=== PATIENT | male | born 1960 | race Caucasian/White ===

== ENCOUNTER 2016-08-20 02:00 | Emergency (ER) | payer MEDICARE, OTHER ==
[2016-08-20] MEDS ORDERED: ALBUTEROL SULFATE/IPRATROPIUM 3 ML NEBU IH ONE ×2 (02:44→02:53)
[2016-08-20] MEDS ORDERED: BENZONATATE 100 MG CAPSULE PO ONE ×2 (02:44→02:54)
[2016-08-20] MEDS ORDERED: METHYLPREDNISOLONE SOD SUCC/PF 40 MG/ML VIAL IV ONE (02:44)
--- NOTE | 2016-08-20 02:49 | ERNOTE ---
Dyspnea - Date Date of Service: 08/20/16 - General Presenting Symptoms: shortness of breath, wheezing Time Seen by Provider: 08/20/16 02:40 Source: patient, family Exam Limitations: no limitations - Immun/Allergies/Home Medications Immunizations: IMMUNIZATION HX Immunizations Up to Date Yes: 2013 History of Influenza Vaccine No Hx Pneumococcal Vaccination No Allergies/Adverse Reactions: Allergies No Known Allergies Allergy (Verified 09/10/15 14:50) Home Medications: HOME MEDICATIONS Albuterol Sulfate [Albuterol Sulfate 0.63 MG/3ML] 0.63 mg IH Q4H PRN #25 vial.neb 07/16/15 [Last Taken Unknown] Albuterol Sulfate/Ipratropium [Duoneb 2.5-0.5MG/3ML Soln] 3 ml IH QID #150 vial 09/10/15 [Last Taken Unknown] Benzonatate [Tessalon] 200 mg PO Q8H PRN #30 cap 08/20/16 [Last Taken Unknown] predniSONE [Prednisone] 2 tab PO DAILY #14 tab 08/20/16 [Last Taken Unknown] - History of Present Illness Date (Duration): 08/20/16 Time (Timing): 01:00 Severity: severe Treatment PULP BLEACHER: none Initiating event: Reports: upper resp illness Frequency of episodes: Reports: occassional episodes Modifying Factors (Worsens): Reports: coughing Associated Symptoms-Dyspnea: Reports: cough, wheezing Review of Systems - Review of Systems Constitutional: Present: no symptoms reported EYE: Present: no symptoms reported ENT: Present: nasal drainage Respiratory: Present: shortness of breath, cough, wheezing Cardiology: Present: no symptoms reported Gastrointestinal/Abdominal: Present: no symptoms reported Musculoskeletal: Present: no symptoms reported Skin: Present: no symptoms reported Neurological: Present: no symptoms reported Endocrine: Present: no symptoms reported Hematologic/Lymphatic: Present: no symptoms reported Psych: Present: no symptoms reported All Other Systems: All systems neg except as marked - Patient's Past Medical History Patient History - Medical: No pertinent hx Patient History - Cardiac/Respiratory: Asthma Patient History - Cancer: No Hx of Cancer Patient History - Surgical Procedures: Other Patient History - Other: None - Social History Living Situations: significant other Abuse History: No History of abuse Psych History: No pertinent hx Smoking Status: Current every day smoker Alcohol Use: none Drug Use: none - Immunizations Immunizations Up to Date: Yes - 2013 Hx Pneumococcal Vaccination: No History of Influenza Vaccine: No Physical Exam - Physical Exam General Appearance: Present: wd/wn, alert, no apparent distress Eye Exam: Normal inspection: bilateral, PERRL: bilateral, EOMI: bilateral Ears, Nose, Throat: Present: normal ENT inspection, hearing grossly normal Neck: Present: normal inspection, nontender Respiratory: Present: accessory muscle use, decreased breath sounds, expiration (prolonged), wheezing Cardiovascular/Chest: Present: regular rate, rhythm, no murmur Gastrointestinal/Abdominal: Present: normal bowel sounds, nontender, nondistended, soft, no organomegaly Neurological Exam: Present: alert, oriented, normal mood/affect Skin Exam: Present: normal color, warm/dry ED Progress - Vital Signs Patient's Vital Signs:: I have reviewed the patient's vital signs. Vital Signs: Vital Signs 08/20/16 02:10 Temperature 36.3 C L Pulse Rate 96 Respiratory 28 H Rate Blood Pressure 142/69 O2 Sat by Pulse 91 Oximetry - X-Ray X-Ray #1 X-Ray: chest Interpretation: Interp. by me - No acute finding - Progress/Reassessment Chief Complaint: Dyspnea Progress:: Improved Departure Clinical Impression: Asthma with COPD with exacerbation - Departure Disposition: Home self-care Condition: Good Instructions: Chronic Obstructive Pulmonary Disease, [id number] Prescriptions: Benzonatate [Tessalon] 200 mg PO Q8H PRN #30 cap PRN Reason: Cough predniSONE [Prednisone] 2 tab PO DAILY #14 tab
--- OUTSIDE RECORDS SUMMARY | 2016-08-20 02:52 | XMS REPORT | Continuity of Care Document ---
:1960 Author Organization [facility] ([facility]) [place] [address] Phone [phone] Care Team Providers Name Role Phone Unavailable Primary Care Provider Unavailable Source Comments This disclosure is being made pursuant to the Care Everywhere program, applicable federal and state laws, and may not contain all informaitonavailable regarding this patient.[facility] ([facility]) Active Allergies and Adverse Reactions Not on File Current Medications Not on file Active Problems Not on file Social History Tobacco Use Types Packs/Day Years Used Date Never Assessed Last Filed Vital Signs Vital Sign Reading Time Taken Blood Pressure - - Pulse - - Temperature - - Respiratory Rate - - Height - - Weight 87.898 kg (193 lb 12.5 oz) 08/26/1997 1:19 PM [employer] Body Mass Index - - Oxygen Saturation - - Plan of Care Health Maintenance Due Date Last Done Comments HCV Screening 1960 Hepatitis B Vaccine (1 of 3 - Primary Series) 1960 Tdap Vaccine 12/22/1970 Lipid Disorder Screening 12/22/1977 MMR Vaccine 12/22/1977 Td Vaccine 12/22/1977 Colonoscopy 12/22/2009 Prostate Cancer Screening 12/22/2009 Influenza Vaccine: Seasonal (#1) 01/31/2016 Results from Last 3 Months Not on file
[2016-08-20] MEDS ORDERED: METHYLPREDNISOLONE SOD SUCC/PF 125 MG/2 ML VIAL ONE (02:53)
[2016-08-20] MEDS ORDERED: ALBUTEROL SULFATE 2.5 MG/0.5 ML VIAL.NEB IH ONE ×2 (03:57→04:07)
[2016-08-20 05:20] VITALS: BP 145/63
== END 2016-08-20 05:18 | disposition home or self-care (01) ==
LOC: ER 02:00
DX: J44.1 Chronic obstructive pulmonary disease with (acute) exacerbation (principal); J45.901 Unspecified asthma with (acute) exacerbation; F17.210 Nicotine dependence, cigarettes, uncomplicated

== ENCOUNTER 2018-09-10 03:49 | Observation (INO) ==
--- NOTE | 2018-09-10 04:24 | ERNOTE ---
Time Seen by Provider: 09/10/18 04:14 Stated Complaint: cough Presenting Symptoms:: cough Source: patient Exam Limitations: clinical condition Immunizations: IMMUNIZATION HX Immunizations Up to Date Yes History of Influenza Vaccine No Hx Pneumococcal Vaccination No Allergies/Adverse Reactions: Allergies No Known Allergies Allergy (Verified 09/10/18 04:18) Home Medications: HOME MEDICATIONS NK 09/10/18 [Last Taken Unknown] - History of Present Ilness Narrative: Pt presents with a week of shortness of breath and cough. Timing: getting worse Severity: moderate, severe Frequency/Possible Cause: Reports: frequent episodes Modifying Factors - Improves: Reports: rest Modifying Factors - Worsens: Reports: activity, coughing Associated Symptoms: Reports: cough, shortness of breath Medical History (Last Reviewed 09/10/18 @ 07:35 by Carlene Sutton RN) Bronchitis COPD (chronic obstructive pulmonary disease) Surgical History: Surgical History (Last Reviewed 09/10/18 @ 07:35 by Carlene Sutton RN) No pertinent past surgical history Family History: Family History (Last Updated 09/10/18 @ 07:37 by Carlene Sutton RN) Other Patient's father is Patient's mother is Social History: Preferred Language St Helen[place] Do you have any evangelical or No cultural preference? Smoking Status Current every day smoker Abuse History No History of abuse Psych History No pertinent hx Alcohol Use none Drug Use none No Social History Section defined Physical Exam - Physical Exam General Appearance: Present: wd/wn, alert, mild distress Head Exam: Present: normal inspection, no evidence of injury Eye Exam: Normal inspection: bilateral Ears, Nose, Throat: Present: normal pharynx Neck: Present: normal inspection, nontender, supple Respiratory: Present: respiratory distress, accessory muscle use, decreased breath sounds, expiration (prolonged), wheezing Cardiovascular/Chest: Present: no murmur, tachycardia Gastrointestinal/Abdominal: Present: nontender, nondistended, soft Back Exam: Present: normal inspection, normal range of motion, no vertebral tenderness Extremity Exam: Present: normal inspection, normal range of motion, no edema Neurological Exam: Present: alert, oriented, no motor/sensory deficits Skin Exam: Present: normal color, warm/dry Lymphatic Exam: Present: no adenopathy Progress - Results and Orders Patient's Lab Results:: I have reviewed the patient's lab results. Results and Orders: Laboratory Tests 09/10/18 09/10/18 09/10/18 04:30 04:30 04:44 WBC 14.8 H Hgb 17.8 Hct 55.6 H Plt Count 204 pCO2 42.3 pO2 62.3 L HCO3 25.3 Base Excess 0.2 ABG pH 7.39 ABG O2 Sat (Measured) 91.8 L Sodium 138 Potassium 4.0 BUN 18 Creatinine 0.94 Random Glucose 127 H Calcium 9.0 Total Bilirubin 0.4 AST 20 ALT 29 Alkaline Phosphatase 91 Total Protein 7.7 Albumin 3.8 Laboratory Tests 09/10/18 05:40 Influenza Type A Ag Negative Influenza Type B Ag Negative - Vital Signs Patient's Vital Signs:: I have reviewed the patient's vital signs. Vital Signs: Vital Signs 09/10/18 04:04 Temperature 37.3 C Pulse Rate 121 H Respiratory Rate 28 H Blood Pressure 144/111 H O2 Sat by Pulse Oximetry 90 L - EKG EKG #1 EKG: supraventricular tachycardia, no ST T wave changes EKG read: Interp. by ca - X-Ray X-Ray #1 X-Ray: chest Interpretation: Interp. by me X-ray Comments: No infiltrate or effusion. - Progress/Reassessment Chief Complaint: Cough Progress:: Improved Progress Note-Subjective: 09/10/18 05:20 Pt running around 90-91 on 2 L / nc. Increased to 3 L 09/10/18 06:28 Duoneb increased his Sao2 on 3 l to 93-95 and respirations although less labored are still 28-30. 09/10/18 06:[address] Valdez and he agrees with admission, steroids and antibiotics. Departure Clinical Impression: Acute exacerbation of chronic obstructive airways disease - Departure Disposition: Still a patient Condition: Fair
[2018-09-10 04:35] LABS: Hematocrit 55.6 % (42.0-52.0); Hemoglobin 17.8 gm/dL (13.5-18.0); Mean Cell Volume 94.2 fl (78-100); Mean Corpuscular Hemoglobin 30.2 pg (27-31); Mean Platelet Volume 9.3 fl (8-11.3); Neutrophil # 11.8 K/mm3 (1.3-6.0); Neutrophil % 80.1 % (42-75.0); Platelet Count 204 K/mm3 (150-450); Red Cell Distribution Width 13.5 % (11.5-14.0); White Blood Count 14.8 K/mm3 (4.0-10.5)
[2018-09-10 04:50] LABS: Albumin * 3.8 gm/dl (3.4-5.0); Anion Gap 11.9 mmol/L (6.8-13.8); BUN/Creatinine Ratio 19.1 (9.0-21.6); Bilirubin, Total 0.4 mg/dL (0.0-1.1); Ca. Corrected For Albumin 8.8 mg/dL (8.4-10.2); Carbon Dioxide 29.1 mmol/L (24-32.6); Total Protein 7.7 gm/dL (6.2-8.2)
[2018-09-10] MEDS ORDERED: ALBUTEROL SULFATE/IPRATROPIUM 3 ML NEBU IH ONE (05:29)
[2018-09-10] MEDS ORDERED: METHYLPREDNISOLONE SOD SUCC/PF 125 MG/2 ML VIAL IV ONE (06:36)
[2018-09-10] MEDS ORDERED: cefTRIAXone SODIUM 1,000 MG/100 ML BAG IV ONE (06:36)
[2018-09-10] MEDS ORDERED: ACETAMINOPHEN 500 MG TABLET PO ONE (06:47)
--- NOTE | 2018-09-10 12:40 | HP ---
Chief Complaint - Chief Complaint Date of Service: 09/10/18 Time of Service: 12:40 Chief Complaint: Shortness of breath, cough History of Present Illness: 57-year-old male presented to the ER for worsening shortness of breath and cough. Patient states it started roughly 1 week earlier and has progressively worsened. Patient states that he is a hard time catching his breath, his chest hurts from coughing. He denies chest pain that radiates, he denies fever/chills, he denies diaphoresis, he denies nausea vomiting. Cough is slightly productive, whitish in color. He normally does not have to use oxygen at home but has had to the ER to maintain sats above 90%. Patient has no other medical history, he does not take medication for anything. Patient states that he has smoked cigarettes since he was young adult, averages between 1-2 packs/day for greater than 30 years. In the ER he was found to have a white count of 14.8 with an 80.1% left shift. His ABG showed a pH of 7.39 with a decreased PO2 at 62.3. He was negative for influenza. Chest x-ray showed no acute process other than some hyperinflation. Patient was transferred to the floor in observation for likely COPD exacerbation. He was given a dose of Rocephin and some Solu-Medrol. Aside from his sats being between 86-80% on room air, and the rest of his vital signs been stable. 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 Smoking Status Current every day smoker Have you smoked in the past 12 Yes months Do you dip or chew tobacco No Abuse History No History of abuse Psych History No pertinent hx Alcohol Use none Drug Use none No Social History Section defined Review Of Systems (GEN) - Review of Systems Generalized/Overall Review: Present: Fatigue. Absent: Weakness, Chills, Fever EENTM: Absent: Ear Pain, Nose Congestion, Throat Pain, Throat Swelling Respiratory: Present: Cough, Shortness of Breath, Wheezing. Absent: Stridor Cardiac: Absent: Chest Pain, Edema, Palpitations Abdominal: Absent: Nausea, Vomiting Genitourinary: Present: No Symptoms Reported Musculoskeletal: Present: No Symptoms Reported Neurological: Present: No Symptoms Reported Skin: Present: No Symptoms Reported Endocrine: Present: No Symptoms Reported Immunizations: IMMUNIZATION HX Immunizations Up to Date Yes History of Influenza Vaccine No Hx Pneumococcal Vaccination No Allergies/Adverse Reactions: Allergies Allergy/AdvReac Type Severity Reaction Status Date / Time No Known Allergies Allergy Verified 09/10/18 04:18 Home Medications: HOME MEDICATIONS NK 09/10/18 [Last Taken Unknown] Exam - Exam Vital Signs: Vital Signs - Last Taken Temp 36.4 C 09/10/18 11:12 Pulse 85 09/10/18 11:12 Resp 20 09/10/18 11:12 BP 130/74 09/10/18 11:12 Pulse Ox 95 09/10/18 11:12 Constitutional: Present: Alert, Oriented x3 ENT Exam: Present: hearing grossly normal. Absent: nasal congestion, nasal drainage Eye Exam: bilateral eye: normal inspection, EOMI Neck: Present: non-tender, supple Respiratory: Present: chest non-tender, decreased breath sounds, wheezing, expiration (prolonged) Cardiovascular/Chest: Present: normal peripheral pulses, regular rate, rhythm, no chest tenderness, no edema Abdomen: Present: Normal bowel sounds, soft. Absent: tender, guarding, rigidity /Rectal: Present: Exam deferred Extremity: Absent: pedal edema, swelling Skin Exam: Present: normal color, warm/dry Appearance: Present: appropriate appearance, appropriate insight Eye contact: Present: cooperative, good eye contact, normal speech Thoughts: Present: normal thought pattern, normal mood /affect Diagnostic Studies: Abnormal Lab Results 09/10/18 09/10/18 09/10/18 Range/Units 04:30 04:30 04:44 WBC 14.8 H (4.0-10.5) K/mm3 Hct 55.6 H (42.0-52.0) % Immature Gran # (Auto) 0.04 H (0.000-0.0310) K/mm3 Neutrophils % 80.1 H (42-75.0) % Lymphocytes % 12.9 L (20-51) % Neutrophils # 11.8 H (1.3-6.0) K/mm3 pO2 62.3 L (83.0-108.0) mmHg Total CO2 26.6 H (19.0-24.0) mmol/L ABG O2 Sat (Measured) 91.8 L (94.0-98.0) % Random Glucose 127 H (70-110) mg/dL Laboratory Results WBC 14.8 K/mm3 (4.0-10.5) H 09/10/18 04:30 RBC 5.90 M/mm3 (4.7-6.0) 09/10/18 04:30 Hgb 17.8 gm/dL (13.5-18.0) 09/10/18 04:30 Hct 55.6 % (42.0-52.0) H 09/10/18 04:30 MCV 94.2 fl (78-100) 09/10/18 04:30 MCH 30.2 pg (27-31) 09/10/18 04:30 MCHC 32.0 g/dl (32-36) 09/10/18 04:30 RDW 13.5 % (11.5-14.0) 09/10/18 04:30 Plt Count 204 K/mm3 (150-450) 09/10/18 04:30 MPV 9.3 fl (8-11.3) 09/10/18 04:30 Immature Gran % (Auto) 0.30 % (0.001-0.429) 09/10/18 04:30 Immature Gran # (Auto) 0.04 K/mm3 (0.000-0.0310) H 09/10/18 04:30 Neutrophils % 80.1 % (42-75.0) H 09/10/18 04:30 Lymphocytes % 12.9 % (20-51) L 09/10/18 04:30 Monocytes % 5.4 % (0.0-9) 09/10/18 04:30 Eosinophils % 0.9 % (0.0-3.0) 09/10/18 04:30 Basophils % 0.4 % (0.0-1.0) 09/10/18 04:30 Nucleated RBC % 0.0 k/mm3 (0-1) 09/10/18 04:30 Neutrophils # 11.8 K/mm3 (1.3-6.0) H 09/10/18 04:30 Lymphocytes # 1.90 k/mm3 (1.5-3.5) 09/10/18 04:30 Monocytes # 0.8 k/mm3 (0.0-1.0) 09/10/18 04:30 Eosinophils # 0.1 k/mm3 (0.0-0.7) 09/10/18 04:30 Absolute Basophils 0.1 k/mm3 (0.0-0.1) 09/10/18 04:30 pCO2 42.3 mmHg (35.0-48.0) 09/10/18 04:44 pO2 62.3 mmHg (83.0-108.0) L 09/10/18 04:44 HCO3 25.3 mmol/L (21.0-28.0) 09/10/18 04:44 Total CO2 26.6 mmol/L (19.0-24.0) H 09/10/18 04:44 Base Excess 0.2 mmol/L (-2.0-3.0) 09/10/18 04:44 ABG pH 7.39 (7.35-7.45) 09/10/18 04:44 ABG O2 Sat (Measured) 91.8 % (94.0-98.0) L 09/10/18 04:44 Sodium 138 mmol/L (132-142) 09/10/18 04:30 Plasma Sodium 138 mmol/L (130-142) 09/10/18 04:30 Potassium 4.0 mmol/L (3.4-4.6) 09/10/18 04:30 Chloride 101 mmol/L (97-106) 09/10/18 04:30 Carbon Dioxide 29.1 mmol/L (24-32.6) 09/10/18 04:30 Anion Gap 11.9 mmol/L (6.8-13.8) 09/10/18 04:30 BUN 18 mg/dL (6-23) 09/10/18 04:30 Creatinine 0.94 mg/dL (0.4-1.4) 09/10/18 04:30 Est GFR (Non-Af Amer) 88 mL/min (60-130) 09/10/18 04:30 BUN/Creatinine Ratio 19.1 (9.0-21.6) 09/10/18 04:30 Random Glucose 127 mg/dL (70-110) H 09/10/18 04:30 Calcium 9.0 mg/dL (7.9-10.9) 09/10/18 04:30 Calcium Adj for Albumin 8.8 mg/dL (8.4-10.2) 09/10/18 04:30 Total Bilirubin 0.4 mg/dL (0.0-1.1) 09/10/18 04:30 AST 20 U/L (0-48) 09/10/18 04:30 ALT 29 U/L (19-67) 09/10/18 04:30 Alkaline Phosphatase 91 U/L (50-170) 09/10/18 04:30 Total Protein 7.7 gm/dL (6.2-8.2) 09/10/18 04:30 Albumin 3.8 gm/dl (3.4-5.0) 09/10/18 04:30 Influenza Type A Ag Negative (NEGATIVE) 09/10/18 05:40 Influenza Type B Ag Negative (NEGATIVE) 09/10/18 05:40 Assessment/Plan - Narrative Narrative: Patient placed in observation on MedSurg floor. We will monitor O2 sats overnight. Patient started on Solu-Medrol IV, will make sure he gets 1 more dose before transitioning him over to prednisone p.o. We will stop the Rocephin and start him on Levaquin which she will take for a total of 7 days. He currently is satting 95-97% on 3 L nasal cannula, will start to wean him down to maintain sats between 90-93%. Duo nebs ordered for wheezing/bronchospasm/shortness of breath to be used every 4 hours as needed. Nicotine patch ordered to help with his cravings while he is here in the hospital. Awaiting results for blood culture the likely will be negative as patient shows no signs or symptoms of systemic disease. SCDs to be placed for D VT prophylaxis, regular diet ordered for the patient. - Assessment/Plan (1) COPD with acute exacerbation Problem: Acute (2) Nicotine dependence Problem: Acute
[2018-09-10] MEDS ORDERED: ACETAMINOPHEN 500 MG TABLET PO PRN (14:07)
[2018-09-10] MEDS ORDERED: NICOTINE 21 MG PATC TD SCH (14:15)
[2018-09-10] MEDS: ALBUTEROL SULFATE/IPRATROPIUM 3 ML NEBU IH PRN (18:08)
[2018-09-10] MEDS ORDERED: METHYLPREDNISOLONE SOD SUCC/PF 40 MG/ML VIAL IV SCH (18:30)
[2018-09-11] MEDS: ALBUTEROL SULFATE/IPRATROPIUM 3 ML NEBU IH PRN (04:32)
[2018-09-11] MEDS ORDERED: predniSONE 20 MG TABLET PO SCH (09:00)
[2018-09-11] MEDS ORDERED: predniSONE 20 MG TABLET PO ONE (09:30)
[2018-09-11] MEDS ORDERED: LEVOFLOXACIN 750 MG TABLET PO SCH ×2 (11:00→21:00)
--- NOTE | 2018-09-11 12:12 | DS ---
(1) COPD with acute exacerbation Problem: Acute (2) Nicotine dependence Problem: Acute Description of Stay: 57-year-old male with 45+-pack-year history smoking presented to the ER with shortness of breath, productive cough. He had an initial white count of 14.8. Chest x-ray showed hyperinflation but no other acute cardiopulmonary processes. His oxygen saturations with mid 80s, he normally does not require O2. Patient diagnosed with acute exacerbation of COPD, started on Rocephin in the ER which was switched over to Levaquin upon discharge. He was also given Solu-Medrol which was switched over to prednisone and continued upon discharge. While here patient improved clinically significantly to the point where he was maintaining sats between 9093% on room air. His breathing improved significantly. Patient stated that he felt he was ready go home upon discharge. We will have him follow-up with me in 1 week as he has no PCP. He will likely be started on some controlled medications for his COPD. Patient is not interested in smoking cessation at this time and understands that this issue will likely arise again in the future. While here his vital signs are stable he was afebrile. Procedures Performed: none Results and Findings: Pending Mircobiology Results 09/10/18 05:00 Blood Blood Culture - Preliminary NO GROWTH 24 HOURS 09/10/18 04:30 Blood Blood Culture - Preliminary NO GROWTH 24 HOURS Lab Pending Results 09/10/18 04:30: WBC 14.8 H, RBC 5.90, Hgb 17.8, Hct 55.6 H, MCV 94.2, MCH 30.2, MCHC 32.0, RDW 13.5, Plt Count 204, MPV 9.3, Immature Gran % (Auto) 0.30, Immature Gran # (Auto) 0.04 H, Neutrophils % 80.1 H, Lymphocytes % 12.9 L, Monocytes % 5.4, Eosinophils % 0.9, Basophils % 0.4, Nucleated RBC % 0.0, Neutrophils # 11.8 H, Lymphocytes # 1.90, Monocytes # 0.8, Eosinophils # 0.1, Absolute Basophils 0.1 09/10/18 04:30: Sodium 138, Plasma Sodium 138, Potassium 4.0, Chloride 101, Carbon Dioxide 29.1, Anion Gap 11.9, BUN 18, Creatinine 0.94, Est GFR (Non-Af Amer) 88, BUN/Creatinine Ratio 19.1, Random Glucose 127 H, Calcium 9.0, Calcium Adj for Albumin 8.8, Total Bilirubin 0.4, AST 20, ALT 29, Alkaline Phosphatase 91, Total Protein 7.7, Albumin 3.8 09/10/18 04:44: pCO2 42.3, pO2 62.3 L, HCO3 25.3, Total CO2 26.6 H, Base Excess 0.2, ABG pH 7.39, ABG O2 Sat (Measured) 91.8 L 09/10/18 05:40: Influenza Type A Ag Negative, Influenza Type B Ag Negative Discharge Location: Home Disposition: Home self-care Condition: Fair Discharge Activity: Activity as tolerated Discharge Diet: General/regular food Referrals: Juan Valdez DO [Staff Physician] - One Week Problem Oriented Discharge Instructions to Patient/Family: Smoking Cessation, Tips for Success, [id number] Additional Patient Instructions (free text): -Please make TCM appointment unless detention discharge. Thank you! Annelise @ ext:[phone]. Prescriptions (Any new or edited meds): Levofloxacin [Levaquin] 750 mg PO DAILY@1100 4 Days #4 tab predniSONE [Prednisone] 2 tab PO DAILY #10 tab Complete Home Medications List: Complete Home Medication List: Levofloxacin [Levaquin] 750 mg PO DAILY@1100 4 Days #4 tab 09/11/18 predniSONE [Prednisone] 2 tab PO DAILY #10 tab 09/11/18
[2018-09-11 13:48] VITALS: BP 143/69
== END 2018-09-11 13:21 | disposition home or self-care (01) ==
LOC: ER 03:49 → INTOOBSV 06:39 → MS 06:39
PROVIDERS: ADMIT Family Medicine; ATTEND Family Medicine
CPT/HCPCS: 36415; 36600; 71010; 71045; 80053; 82803; 85025; 87040; 87400; 87449; 93005; 94640; 94664; 94760; 96365; 96375; 99285; G0378

== ENCOUNTER 2018-11-13 02:08 | Observation (INO) ==
[2018-11-13] MEDS ORDERED: ALBUTEROL SULFATE/IPRATROPIUM 3 ML NEBU IH ONE ×2 (02:12→02:56)
--- NOTE | 2018-11-13 03:02 | ERNOTE ---
Dyspnea - General Presenting Symptoms: shortness of breath Time Seen by Provider: 11/13/18 02:12 Source: patient, family Exam Limitations: no limitations - Immun/Allergies/Home Medications Immunizations: IMMUNIZATION HX Immunizations Up to Date Yes History of Influenza Vaccine No Hx Pneumococcal Vaccination No Allergies/Adverse Reactions: Allergies No Known Allergies Allergy (Verified 11/13/18 06:03) Home Medications: HOME MEDICATIONS NK 11/13/18 [Last Taken Unknown] - History of Present Illness Narrative: Pt has been more short of breath for 2 to 3 days thinking that he could get through it at home with [id number] medications. 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 Initiating event: Reports: upper resp illness Frequency of episodes: Reports: frequent episodes Modifying Factors - (Improves): Reports: oxygen Modifying Factors (Worsens): Reports: lying down Review of Systems - Review of Systems Constitutional: Present: fever, chills ENT: Present: nose congestion, nasal drainage Respiratory: Present: shortness of breath, cough Cardiology: Present: palpitations Gastrointestinal/Abdominal: Absent: nausea, vomiting Genitourinary: Absent: frequency, pain, dysuria Skin: Absent: rash Endocrine: Present: excessive sweating Medical History (Updated 11/13/18 @ 04:34 by Eleazar Selby DO) Bronchitis COPD (chronic obstructive pulmonary disease) Surgical History: Surgical History (Updated 09/10/18 @ 07:12 by Yovanny Iniguez RN) No pertinent past surgical history Family History: Family History (Updated 09/10/18 @ 07:37 by Carlene Sutton RN) Other Patient's father is Patient's mother is Social History: Preferred Language Luxembourgish Do you have any scientology or No cultural preference? Smoking Status Current every day smoker Abuse History No History of abuse Psych History No pertinent hx Alcohol Use none Drug Use none No Social History Section defined Physical Exam - Physical Exam General Appearance: Present: wd/wn, alert, mild distress Head Exam: Present: normal inspection, no evidence of injury Ears, Nose, Throat: Present: normal pharynx Neck: Present: normal inspection, nontender Respiratory: Present: respiratory distress, accessory muscle use, rhonchi, wheezing Cardiovascular/Chest: Present: tachycardia Gastrointestinal/Abdominal: Present: normal bowel sounds, nontender, no organomegaly Back Exam: Present: normal inspection, normal range of motion, no vertebral tenderness Extremity Exam: Present: normal inspection, normal range of motion, no edema Neurological Exam: Present: alert, oriented, normal mood/affect, no motor/sensory deficits Skin Exam: Present: normal color, warm/dry Lymphatic Exam: Present: no adenopathy Progress - Results and Orders Patient's Lab Results:: I have reviewed the patient's lab results. Results and Orders: Laboratory Tests 11/13/18 11/13/18 11/13/18 03:05 03:05 03:05 WBC 14.3 H Hgb 18.0 Hct 55.4 H Plt Count 191 Neutrophils % 80.5 H Sodium 136 Potassium 3.8 Chloride 98 Carbon Dioxide 26.8 Anion Gap 15.0 H BUN 16 Creatinine 0.94 Random Glucose 119 H Lactic Acid, Venous 0.5 Calcium 9.1 Total Bilirubin 0.7 AST 18 ALT 26 - Vital Signs Patient's Vital Signs:: I have reviewed the patient's vital signs. Vital Signs: Vital Signs 11/13/18 02:15 11/13/18 02:50 Temperature 36.5 C Pulse Rate 115 H 102 H Respiratory Rate 32 H Blood Pressure 150/92 H O2 Sat by Pulse Oximetry 88 L - EKG EKG #1 EKG: supraventricular tachycardia EKG read: Interp. by me - X-Ray X-Ray #1 X-Ray: chest Interpretation: Interp. by me X-ray Comments: No infiltrate or effusion, increased bronchial markings suggesting bronchitis. - Progress/Reassessment Chief Complaint: Dyspnea Progress Note-Subjective: 11/13/18 05:[address] Miller and he is willing to accept the patient for admission. Departure Clinical Impression: Acute exacerbation of chronic obstructive airways disease - Departure Disposition: Still a patient Condition: Fair
[2018-11-13 03:09] LABS: Hematocrit 55.4 % (42.0-52.0); Mean Cell Volume 93.3 fl (78-100); Mean Corpuscular Hemoglobin 30.3 pg (27-31); Mean Corpuscular Hgb Conc 32.5 g/dl (32-36); Mean Platelet Volume 9.8 fl (8-11.3); Neutrophil # 11.5 K/mm3 (1.3-6.0); Neutrophil % 80.5 % (42-75.0); Platelet Count 191 K/mm3 (150-450); Red Blood Count 5.94 M/mm3 (4.7-6.0); Red Cell Distribution Width 13.5 % (11.5-14.0); White Blood Count 14.3 K/mm3 (4.0-10.5)
[2018-11-13 03:28] LABS: Albumin * 3.8 gm/dl (3.4-5.0); Bilirubin, Total 0.7 mg/dL (0.0-1.1); Ca. Corrected For Albumin 8.9 mg/dL (8.4-10.2); Calcium * 9.1 mg/dL (7.9-10.9); Carbon Dioxide 26.8 mmol/L (24-32.6); Potassium 3.8 mmol/L (3.4-4.6); Total Protein 7.7 gm/dL (6.2-8.2)
[2018-11-13] MEDS ORDERED: ALBUTEROL SULFATE 2.5 MG/0.5 ML VIAL.NEB IH ONE (04:30)
[2018-11-13] MEDS ORDERED: METHYLPREDNISOLONE SOD SUCC/PF 125 MG/2 ML VIAL IV ONE (04:33)
--- NOTE | 2018-11-13 07:50 | HP ---
Chief Complaint - Chief Complaint Date of Service: 11/13/18 Time of Service: 07:34 Chief Complaint: shortness of breath History of Present Illness: Arie Thompson is a 57-year-old white male with past medical history of COPD who was admitted on 11/13/2018 for increasing shortness of breath. 2 days prior to admission the patient started having cough productive of whitish phlegm. He denied any fever or chills, chest pain, palpitations but admitted to associated nausea and wheezing. The patient does not have any inhaler or nebulizer at home. On the day of his admission he started having more shortness of breath and felt that his oxygen level went down and so he went to our emergency room. He was found to have a white blood cell count of 14.2 with a left shift. He was saturating in the 80s and bumped up to low 90s with 2 L of nasal cannula. He was tachypneic and his ABG done showed a pH of 7.39 with PO2 of 82.3. His CXR showed increased markings - pulmonary edema vs inerstitial pneumonmitis/atypical pneumonia. He was given IV Solu-Medrol and IV Rocephin and admitted for observation as he would desaturate with exertion. He says that he has been in the hospital for exacerbation of COPD once last year and this is his second time this year. He smokes 1 PPD for the last 30 years. Medical History (Updated 11/13/18 @ 08:05 by Indra Miller MD) Bronchitis COPD (chronic obstructive pulmonary disease) Surgical History: Surgical History (Updated 11/13/18 @ 07:50 by Indra Miller MD) History of hernia repair Family History: Family History (Updated 09/10/18 @ 07:37 by Carlene Sutton RN) Other Patient's father is Patient's mother is Social History: Patient Lives/Resources With Spouse Utilized Occupation unemployed Preferred Language Dutch Do you have any pentecostalism or No cultural preference? Smoking Status Current every day smoker Have you smoked in the past 12 Yes months Do you dip or chew tobacco No Abuse History No History of abuse Psych History No pertinent hx Alcohol Use none Drug Use none No Social History Section defined Review Of Systems (GEN) - Review of Systems Generalized/Overall Review: Absent: Weakness, Chills, Fever EENTM: Absent: Blurred Vision Respiratory: Present: Cough, Shortness of Breath, Wheezing. Absent: Orthopnea Cardiac: Absent: Chest Pain, Edema, Palpitations Abdominal: Absent: Nausea, Vomiting, Abdominal Pain Genitourinary: Absent: Urgency, Frequency Musculoskeletal: Absent: Joint Pain, Back Pain Neurological: Absent: Headache Skin: Absent: Lesions, Rash Endocrine: Absent: Intolerance to Cold, Intolerance to Heat Misc: All systems neg except as marked Immunizations: IMMUNIZATION HX Immunizations Up to Date Yes History of Influenza Vaccine No Hx Pneumococcal Vaccination No Allergies/Adverse Reactions: Allergies Allergy/AdvReac Type Severity Reaction Status Date / Time No Known Allergies Allergy Verified 11/13/18 06:03 Home Medications: HOME MEDICATIONS NK 11/13/18 [Last Taken Unknown] Exam - Exam Vital Signs: Vital Signs - Last Taken Temp 36.5 C 11/13/18 06:07 Pulse 100 11/13/18 06:07 Resp 28 H 11/13/18 06:07 BP 128/74 11/13/18 06:07 Pulse Ox 92 L 11/13/18 06:07 Constitutional: Present: Alert, Oriented x3 ENT Exam: Present: hearing grossly normal Eye Exam: bilateral eye: normal inspection, PERRL, EOMI Neck: Present: supple Respiratory: Present: no accessory muscle use, respiratory distress - mild, decreased breath sounds, wheezing, No rales Cardiovascular/Chest: Present: regular rate, rhythm, no JVD, no murmur Abdomen: Present: Normal bowel sounds, soft, nontender, nondistended Extremity: Present: no pedal edema, calf tenderness Diagnostic Studies: Abnormal Lab Results 11/13/18 11/13/18 Range/Units 03:05 03:05 WBC 14.3 H (4.0-10.5) K/mm3 Hct 55.4 H (42.0-52.0) % Immature Gran # (Auto) 0.04 H (0.000-0.0310) K/mm3 Neutrophils % 80.5 H (42-75.0) % Lymphocytes % 11.6 L (20-51) % Neutrophils # 11.5 H (1.3-6.0) K/mm3 Anion Gap 15.0 H (6.8-13.8) mmol/L Random Glucose 119 H (70-110) mg/dL Laboratory Results WBC 14.3 K/mm3 (4.0-10.5) H 11/13/18 03:05 RBC 5.94 M/mm3 (4.7-6.0) 11/13/18 03:05 Hgb 18.0 gm/dL (13.5-18.0) 11/13/18 03:05 Hct 55.4 % (42.0-52.0) H 11/13/18 03:05 MCV 93.3 fl (78-100) 11/13/18 03:05 MCH 30.3 pg (27-31) 11/13/18 03:05 MCHC 32.5 g/dl (32-36) 11/13/18 03:05 RDW 13.5 % (11.5-14.0) 11/13/18 03:05 Plt Count 191 K/mm3 (150-450) 11/13/18 03:05 MPV 9.8 fl (8-11.3) 11/13/18 03:05 Immature Gran % (Auto) 0.30 % (0.001-0.429) 11/13/18 03:05 Immature Gran # (Auto) 0.04 K/mm3 (0.000-0.0310) H 11/13/18 03:05 80.5 % (42-75.0) H 11/13/18 03:05 11.6 % (20-51) L 11/13/18 03:05 6.6 % (0.0-9) 11/13/18 03:05 0.7 % (0.0-3.0) 11/13/18 03:05 0.3 % (0.0-1.0) 11/13/18 03:05 Nucleated RBC % 0.0 k/mm3 (0-1) 11/13/18 03:05 11.5 K/mm3 (1.3-6.0) H 11/13/18 03:05 1.66 k/mm3 (1.5-3.5) 11/13/18 03:05 1.0 k/mm3 (0.0-1.0) 11/13/18 03:05 0.1 k/mm3 (0.0-0.7) 11/13/18 03:05 Absolute Basophils 0.1 k/mm3 (0.0-0.1) 11/13/18 03:05 Sodium 136 mmol/L (132-142) 11/13/18 03:05 136 mmol/L (130-142) 11/13/18 03:05 Potassium 3.8 mmol/L (3.4-4.6) 11/13/18 03:05 Chloride 98 mmol/L (97-106) 11/13/18 03:05 Carbon Dioxide 26.8 mmol/L (24-32.6) 11/13/18 03:05 15.0 mmol/L (6.8-13.8) H 11/13/18 03:05 BUN 16 mg/dL (6-23) 11/13/18 03:05 0.94 mg/dL (0.4-1.4) 11/13/18 03:05 Est GFR (Non-Af Amer) 88 mL/min (60-130) 11/13/18 03:05 17.0 (9.0-21.6) 11/13/18 03:05 119 mg/dL (70-110) H 11/13/18 03:05 0.5 mmol/L (0.4-2.0) 11/13/18 03:05 Calcium 9.1 mg/dL (7.9-10.9) 11/13/18 03:05 Calcium Adj for Albumin 8.9 mg/dL (8.4-10.2) 11/13/18 03:05 0.7 mg/dL (0.0-1.1) 11/13/18 03:05 AST 18 U/L (0-48) 11/13/18 03:05 ALT 26 U/L (19-67) 11/13/18 03:05 83 U/L (50-170) 11/13/18 03:05 7.7 gm/dL (6.2-8.2) 11/13/18 03:05 3.8 gm/dl (3.4-5.0) 11/13/18 03:05 Assessment/Plan - Assessment/Plan (1) Acute exacerbation of chronic obstructive airways disease Assessment: will continue with IV solumedrol, IV antibiotics and breathing treatment. when he has settled down form his exacerbation will neeed a PFT on outpatient basis. Problem: Acute (2) Acute bronchitis with COPD Assessment: vs interstitial pneimonits/atypical pneumonia. will cover with levaquin. will add procalcitonin and BNP. Problem: Acute (3) Nicotine dependence Assessment: will start nicotine patch. Problem: Chronic Qualifiers: Nicotine product type: cigarettes Substance use status: unspecified nicotine-induced disorder Qualified Code(s): F17.219 - Nicotine dependence, cigarettes, with unspecified nicotine-induced disorders
[2018-11-13] MEDS ORDERED: LEVOFLOXACIN IN DEXTROSE 5 % 750 MG/150 ML BAG IV ONE (08:08)
[2018-11-13] MEDS ORDERED: METHYLPREDNISOLONE SOD SUCC/PF 125 MG/2 ML VIAL IV SCH (08:15)
[2018-11-13] MEDS: ALBUTEROL SULFATE/IPRATROPIUM 3 ML NEBU IH SCH ×3 (08:25→14:19)
[2018-11-13] MEDS: NICOTINE 21 MG PATC TD SCH (08:37)
[2018-11-13] MEDS: guaiFENesin/DEXTROMETHORPHAN 118 ML BTL PO PRN ×3 (10:09→20:09)
[2018-11-13] MEDS: METHYLPREDNISOLONE SOD SUCC/PF 125 MG/2 ML VIAL IV SCH ×3 (10:13→23:34)
[2018-11-13] MEDS: LEVALBUTEROL HCL 1.25 MG/3 ML AMPUL IH SCH ×2 (18:08→22:15)
[2018-11-13] MEDS: IPRATROPIUM BROMIDE 0.5 MG/2.5 ML VIAL.NEB IH SCH ×2 (18:08→22:15)
[2018-11-14] MEDS: guaiFENesin/DEXTROMETHORPHAN 118 ML BTL PO PRN (01:35)
[2018-11-14] MEDS: LEVALBUTEROL HCL 1.25 MG/3 ML AMPUL IH SCH ×3 (02:01→10:26)
[2018-11-14] MEDS: IPRATROPIUM BROMIDE 0.5 MG/2.5 ML VIAL.NEB IH SCH ×3 (02:01→10:22)
[2018-11-14] MEDS: METHYLPREDNISOLONE SOD SUCC/PF 125 MG/2 ML VIAL IV SCH ×2 (04:20→11:05)
[2018-11-14] MEDS: NICOTINE 21 MG PATC TD SCH (08:04)
--- NOTE | 2018-11-14 09:33 | PN ---
Progess Note - Interim Date: 11/14/18 Time: 09:32 Narrative: 11/14/18 09:32 Will wean patient to 88 % and above. if successful , will discharge james on Prednisone, Duoneb, Proair, and levaquin.
[2018-11-14] MEDS ORDERED: LEVOFLOXACIN 750 MG TABLET PO SCH (11:00)
--- NOTE | 2018-11-14 11:19 | DS ---
(1) Acute exacerbation of chronic obstructive airways disease Problem: Resolved (2) Acute bronchitis with COPD Problem: Acute (3) Nicotine dependence Problem: Chronic Qualifiers: Nicotine product type: cigarettes Substance use status: unspecified nicotine-induced disorder Qualified Code(s): F17.219 - Nicotine dependence, cigarettes, with unspecified nicotine-induced disorders Description of Stay: Arie Thompson is a 57-year-old white male with past medical history of COPD who was admitted on 11/13/2018 for increasing shortness of breath. 2 days prior to admission the patient started having cough productive of whitish phlegm. He denied any fever or chills, chest pain, palpitations but admitted to associated nausea and wheezing. The patient does not have any inhaler or nebulizer at home. On the day of his admission he started having more shortness of breath and felt that his oxygen level went down and so he went to our emergency room. He was found to have a white blood cell count of 14.2 with a left shift. He was saturating in the 80s and bumped up to low 90s with 2 L of nasal cannula. He was tachypneic and his ABG done showed a pH of 7.39 with PO2 of 82.3. His CXR showed increased markings - pulmonary edema vs inerstitial pneumonmitis/atypical pneumonia. He was given IV Solu-Medrol and IV Rocephin and admitted for observ ation as he would desaturate with exertion. He says that he has been in the hospital for exacerbation of COPD once last year and this is his second time this year. He smokes 1 PPD for the last 30 years. He was continued on O2-2-3 L NC, IV solumedrol , IV levaquin, and duoneb which was changed to xopenex breathng treatment. He improved clinicaly. We walked him today in the hallway at and he stayed in the 95%. He was told or encouraged to stop his smoking habit. Will discharge him today on Oral Prednisone, Levaquin, Duoneb, Proair Hfa for rescue breathing. He can follow up with me x 1 visit in 1 week but needs to find a PCP. Procedures Performed: none Results and Findings: Lab Pending Results 11/13/18 03:05: WBC 14.3 H, RBC 5.94, Hgb 18.0, Hct 55.4 H, MCV 93.3, MCH 30.3, MCHC 32.5, RDW 13.5, Plt Count 191, MPV 9.8, Immature Gran % (Auto) 0.30, Immature Gran # (Auto) 0.04 H, Neutrophils % 80.5 H, Lymphocytes % 11.6 L, Monocytes % 6.6, Eosinophils % 0.7, Basophils % 0.3, Nucleated RBC % 0.0, Neutrophils # 11.5 H, Lymphocytes # 1.66, Monocytes # 1.0, Eosinophils # 0.1, Absolute Basophils 0.1 11/13/18 03:05: Sodium 136, Plasma Sodium 136, Potassium 3.8, Chloride 98, Carbon Dioxide 26.8, Anion Gap 15.0 H, BUN 16, Creatinine 0.94, Est GFR (Non-Af Amer) 88, BUN/Creatinine Ratio 17.0, Random Glucose 119 H, Calcium 9.1, Calcium Adj for Albumin 8.9, Total Bilirubin 0.7, AST 18, ALT 26, Alkaline Phosphatase 83, Total Protein 7.7, Albumin 3.8 11/13/18 03:05: Lactic Acid, Venous 0.5 11/13/18 03:05: Procalcitonin 0.07 11/13/18 03:05: B-Natriuretic Peptide 38 11/13/18 15:08: pCO2 37.8, pO2 55.8 L, HCO3 24.1, Total CO2 25.3 H, Base Excess 0.1, ABG pH 7.42, ABG O2 Sat (Measured) 89.8 L Discharge Location: Home Disposition: Home self-care Condition: Stable Discharge Activity: Activity as tolerated Discharge Diet: General/regular food Additional Patient Instructions (free text): -Please make TCM appointment unless long-term discharge. Thank you! Annelise @ [phone]. Follow up with Dr Miller for hospital follow up x 1 visit only in 1 week. Patient does not have a PCP. Prescriptions (Any new or edited meds): Albuterol Sulfate/Ipratropium [Duoneb 2.5-0.5MG/3ML Soln] 3 ml INHALATION QID #150 vial Levofloxacin [Levaquin] 750 mg PO DAILY 5 Days #5 tab predniSONE [Prednisone] 2 tab PO DAILY #14 tab Albuterol Sulfate [Proair Hfa] 1 - 2 puff INHALATION Q4H PRN #1 inhaler PRN Reason: Shortness Of Breath Complete Home Medications List: Complete Home Medication List: Albuterol Sulfate [Proair Hfa] 1 - 2 puff INHALATION Q4H PRN #1 inhaler 11/14/18 Albuterol Sulfate/Ipratropium [Duoneb 2.5-0.5MG/3ML Soln] 3 ml INHALATION QID #150 vial 11/14/18 Levofloxacin [Levaquin] 750 mg PO DAILY 5 Days #5 tab 11/14/18 predniSONE [Prednisone] 2 tab PO DAILY #14 tab 11/14/18
[2018-11-14 13:50] VITALS: BP 137/71
== END 2018-11-14 14:29 | disposition home or self-care (01) ==
LOC: ER 02:08 → MS 05:28 → INTOOBSV 05:28 → MS 06:00
PROVIDERS: ADMIT Internal Medicine; ATTEND Internal Medicine
DX: F17.219 Nicotine dependence, cigarettes, with unspecified nicotine-induced disorders; J40 Bronchitis, not specified as acute or chronic; J44.1 Chronic obstructive pulmonary disease with (acute) exacerbation
CPT/HCPCS: 36415; 36600; 71020; 71046; 80053; 82803; 83519; 83605; 83880; 84145; 85025; 93005; 94640; 94664; 94760; 96365; 96366; 96367; 96375; 99285; G0378

== ENCOUNTER 2019-02-13 12:36 | Inpatient (IN) ==
[2019-02-13] MEDS ORDERED: ALBUTEROL SULFATE/IPRATROPIUM 3 ML NEBU IH ONE ×2 (12:42→12:46)
[2019-02-13] MEDS ORDERED: METHYLPREDNISOLONE SOD SUCC/PF 125 MG/2 ML VIAL IV ONE (12:53)
[2019-02-13 13:02] LABS: Hemoglobin 18.2 gm/dL (13.5-18.0); Mean Cell Volume 94.1 fl (78-100); Mean Corpuscular Hemoglobin 30.6 pg (27-31); Mean Corpuscular Hgb Conc 32.5 g/dl (32-36); Mean Platelet Volume 9.7 fl (8-11.3); Neutrophil # 11.1 K/mm3 (1.3-6.0); Neutrophil % 87.5 % (42-75.0); Platelet Count 208 K/mm3 (150-450); Red Blood Count 5.95 M/mm3 (4.7-6.0); Red Cell Distribution Width 13.8 % (11.5-14.0); White Blood Count 12.7 K/mm3 (4.0-10.5)
--- NOTE | 2019-02-13 13:02 | ERNOTE ---
Dyspnea - General Presenting Symptoms: shortness of breath Time Seen by Provider: 02/13/19 12:40 Source: patient Exam Limitations: no limitations - Immun/Allergies/Home Medications Immunizations: IMMUNIZATION HX Immunizations Up to Date Yes History of Influenza Vaccine No Hx Pneumococcal Vaccination No Allergies/Adverse Reactions: Allergies No Known Allergies Allergy (Verified 11/21/18 15:21) Home Medications: HOME MEDICATIONS Albuterol Sulfate [Proair Hfa] 1 - 2 puff INHALATION Q4H PRN #1 inhaler 11/14/18 [Last Taken Unknown] Albuterol Sulfate/Ipratropium [Duoneb 2.5-0.5MG/3ML Soln] 3 ml INHALATION QID #150 vial 11/14/18 [Last Taken Unknown] guaiFENesin/DEXTROMETHORPHAN [Robitussin-Dm] 10 ml PO Q4H PRN #7 btl 11/14/18 [Last Taken Unknown] - History of Present Illness Narrative: Patient has a history of COPD with frequent exacerbations (two admissions this year) He is on albuterol only at home. 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 Denies: out of meds Frequency of episodes: Reports: frequent episodes Modifying Factors - (Improves): Reports: activity Modifying Factors (Worsens): Reports: activity Associated Symptoms-Dyspnea: Reports: cough, wheezing. Denies: fever/chills, chest pain/discomfort Prior Treatment: Reports: previous episodes. Denies: recently seen, currently on antibiotics Review of Systems - Review of Systems Constitutional: Absent: recent illness, fever ENT: Present: nose congestion, nasal drainage, sore throat Respiratory: Present: shortness of breath, cough Cardiology: Absent: chest pain Gastrointestinal/Abdominal: Present: nausea, diarrhea - once this morning, abdominal pain - with coughing. Absent: vomiting Neurological: Present: headache Medical History (Updated 12/05/18 @ 08:16 by Indra Miller MD) Bronchitis COPD (chronic obstructive pulmonary disease) Surgical History: Surgical History (Updated 11/13/18 @ 07:50 by Indra Miller MD) History of hernia repair Family History: Family History (Updated 09/10/18 @ 07:37 by Carlene Sutton, AURA) Other Patient's father is Patient's mother is Social History: (Last Reviewed 02/13/19 @ 14:29 by Ruby Barajas RN) Social History: Marital status: Life Partner lives independently: Yes household members: significant other parent marital status: umarried, living together current occupational status: disabled Tobacco: Smoking Status: Current every day smoker Physical Exam - Physical Exam General Appearance: Present: wd/wn, alert, mild distress, anxious Head Exam: Present: normal inspection Ears, Nose, Throat: Present: normal pharynx Respiratory: Present: lungs clear, respiratory distress - increased rate and work of breathing, decreased breath sounds - !!! minimal movement Cardiovascular/Chest: Present: no murmur, tachycardia Gastrointestinal/Abdominal: Present: nontender Neurological Exam: Present: alert, oriented, normal mood/affect Skin Exam: Present: normal color - very taned, warm/dry Progress - Results and Orders Patient's Lab Results:: I have reviewed the patient's lab results. - Vital Signs Patient's Vital Signs:: I have reviewed the patient's vital signs. Vital Signs: Vital Signs 02/13/19 12:37 Temperature 36.8 C Pulse Rate 127 H Respiratory Rate 17 O2 Sat by Pulse Oximetry 84 L - EKG EKG #1 EKG: NSR - sinustachycardia, other - no acute changes except for rate EKG read: Interp. by me - X-Ray X-Ray #1 X-Ray: chest - hyperinflated, no infiltrate Interpretation: Reviewed by me - Progress/Reassessment Chief Complaint: Dyspnea Progress Note-Subjective: 02/13/19 12:59 improved air movement after neb treatment 02/13/19 13:40 discussed 02/13/19 13:45 discussed with shauna Carbajal to admit for observation for COPD observation, start doxycycline Departure Clinical Impression: COPD exacerbation - Departure Disposition: Still a patient Condition: Stable
[2019-02-13 13:20] LABS: Troponin I 0.019 ng/mL (0.00-0.10)
[2019-02-13 13:21] LABS: Albumin * 3.9 gm/dl (3.4-5.0); Anion Gap 15.4 mmol/L (6.8-13.8); Bilirubin, Total 0.5 mg/dL (0.0-1.1); Ca. Corrected For Albumin 8.8 mg/dL (8.4-10.2); Carbon Dioxide 27.7 mmol/L (24-32.6); Potassium 4.1 mmol/L (3.4-4.6); Total Protein 7.9 gm/dL (6.2-8.2)
[2019-02-13] MEDS ORDERED: ALBUTEROL SULFATE 2.5 MG/0.5 ML VIAL.NEB IH PRN ×2 (13:58→16:02)
[2019-02-13] MEDS ORDERED: ALBUTEROL SULFATE/IPRATROPIUM 3 ML NEBU IH SCH (14:00)
[2019-02-13] MEDS: NICOTINE 14 MG PATC TD SCH (16:12)
[2019-02-13] MEDS: DOXYCYCLINE HYCLATE 100 MG TABLET PO SCH ×2 (16:12→20:52)
--- NOTE | 2019-02-13 16:26 | HP ---
Chief Complaint - Chief Complaint Date of Service: 02/13/19 Time of Service: 16:04 Chief Complaint: shortness of breath History of Present Illness: Patient with past medical history of COPD was around friends a couple of days ago, 1 of whom was smoking a strong cigar, which caused him to develop shortness of breath and cough. He has a history of COPD, and has had a few exacerbations this year. Only uses albuterol as needed for treatment. Smokes 1/2 ppd, down from 2 ppd. He's had increased cough, productive of white phlegm. He can hear himself wheeze. He denies chest pain, fever, lower extremity swelling. His appetite is intact. He does not require oxygen at baseline, but is requiring it here, currently 2 L. He was given 125 mg solumedrol in the ED, and started on doxycycline. Medical History (Updated 02/13/19 @ 14:03 by Jessa Cooney MD) Bronchitis COPD (chronic obstructive pulmonary disease) Surgical History: Surgical History (Updated 11/13/18 @ 07:50 by Indra Miller MD) History of hernia repair Family History: Family History (Updated 09/10/18 @ 07:37 by Carlene Sutton RN) Other Patient's father is Patient's mother is Social History: (Last Reviewed 02/13/19 @ 14:29 by Ruby Barajas RN) Social History: Marital status: Life Partner lives independently: Yes household members: significant other parent marital status: umarried, living together current occupational status: disabled Tobacco: Smoking Status: Current every day smoker Review Of Systems (GEN) - Review of Systems Generalized/Overall Review: Absent: Fever Respiratory: Present: Cough, Shortness of Breath, Wheezing Cardiac: Absent: Chest Pain, Edema Abdominal: Absent: Nausea, Vomiting Genitourinary: Absent: Dysuria Musculoskeletal: Present: No Symptoms Reported Neurological: Present: No Symptoms Reported Skin: Present: No Symptoms Reported Immunizations: IMMUNIZATION HX Immunizations Up to Date Yes History of Influenza Vaccine No Hx Pneumococcal Vaccination No Allergies/Adverse Reactions: Allergies Allergy/AdvReac Type Severity Reaction Status Date / Time No Known Allergies Allergy Verified 11/21/18 15:21 Home Medications: HOME MEDICATIONS Albuterol Sulfate [Proair Hfa] 1 - 2 puff INHALATION Q4H PRN #1 inhaler 11/14/18 [Last Taken Unknown] Albuterol Sulfate/Ipratropium [Duoneb 2.5-0.5MG/3ML Soln] 3 ml INHALATION QID #150 vial 11/14/18 [Last Taken Unknown] guaiFENesin/DEXTROMETHORPHAN [Robitussin-Dm] 10 ml PO Q4H PRN #7 btl 11/14/18 [Last Taken Unknown] Exam - Exam Vital Signs: Vital Signs - Last Taken Temp 36.6 C 02/13/19 14:08 Pulse 98 02/13/19 14:08 Resp 22 H 02/13/19 14:08 BP 132/80 02/13/19 14:08 Pulse Ox 92 L 02/13/19 14:08 Constitutional: Present: Alert, Cooperative, No distress ENT Exam: Present: other - poor dentition Respiratory: Present: wheezing - significant, bilateral, other - using 2 L O2 via NC Cardiovascular/Chest: Present: tachycardia - HR 110. Absent: edema Abdomen: Present: Normal bowel sounds, obese Skin Exam: Present: other - multiple healing violaceous macules of bilateral lower extremities Neurologic: Present: normal mood/affect Eye contact: Present: cooperative Diagnostic Studies: Abnormal Lab Results 02/13/19 02/13/19 02/13/19 Range/Units 12:55 12:55 13:20 WBC 12.7 H (4.0-10.5) K/mm3 Hgb 18.2 H (13.5-18.0) gm/dL Hct 56.0 H (42.0-52.0) % Immature Gran # (Auto) 0.05 H (0.000-0.0310) K/mm3 Neutrophils % 87.5 H (42-75.0) % Lymphocytes % 6.3 L (20-51) % Neutrophils # 11.1 H (1.3-6.0) K/mm3 Lymphocytes # 0.80 L (1.5-3.5) k/mm3 pO2 73.9 L (83.0-108.0) mmHg Total CO2 26.5 H (19.0-24.0) mmol/L Anion Gap 15.4 H (6.8-13.8) mmol/L Random Glucose 120 H (70-110) mg/dL Laboratory Results WBC 12.7 K/mm3 (4.0-10.5) H 08/15/19 12:55 RBC 5.95 M/mm3 (4.7-6.0) 02/13/19 12:55 Hgb 18.2 gm/dL (13.5-18.0) H 02/13/19 12:55 Hct 56.0 % (42.0-52.0) H 02/13/19 12:55 MCV 94.1 fl (78-100) 02/13/19 12:55 MCH 30.6 pg (27-31) 02/13/19 12:55 MCHC 32.5 g/dl (32-36) 02/13/19 12:55 RDW 13.8 % (11.5-14.0) 02/13/19 12:55 Plt Count 208 K/mm3 (150-450) 02/13/19 12:55 MPV 9.7 fl (8-11.3) 02/13/19 12:55 Immature Gran % (Auto) 0.40 % (0.001-0.429) 02/13/19 12:55 Immature Gran # (Auto) 0.05 K/mm3 (0.000-0.0310) H 02/13/19 12:55 87.5 % (42-75.0) H 02/13/19 12:55 6.3 % (20-51) L 02/13/19 12:55 4.5 % (0.0-9) 02/13/19 12:55 0.9 % (0.0-3.0) 02/13/19 12:55 0.4 % (0.0-1.0) 02/13/19 12:55 Nucleated RBC % 0.0 k/mm3 (0-1) 02/13/19 12:55 11.1 K/mm3 (1.3-6.0) H 02/13/19 12:55 0.80 k/mm3 (1.5-3.5) L 02/13/19 12:55 0.6 k/mm3 (0.0-1.0) 02/13/19 12:55 0.1 k/mm3 (0.0-0.7) 02/13/19 12:55 Absolute Basophils 0.1 k/mm3 (0.0-0.1) 02/13/19 12:55 pCO2 40.5 mmHg (35.0-48.0) 02/13/19 13:20 pO2 73.9 mmHg (83.0-108.0) L 02/13/19 13:20 HCO3 25.3 mmol/L (21.0-28.0) 02/13/19 13:20 Total CO2 26.5 mmol/L (19.0-24.0) H 02/13/19 13:20 Base Excess 0.7 mmol/L (-2.0-3.0) 02/13/19 13:20 ABG pH 7.41 (7.35-7.45) 02/13/19 13:20 ABG O2 Sat (Measured) 95.0 % (94.0-98.0) 02/13/19 13:20 Sodium 140 mmol/L (132-142) 02/13/19 12:55 140 mmol/L (130-142) 02/13/19 12:55 Potassium 4.1 mmol/L (3.4-4.6) 02/13/19 12:55 Chloride 101 mmol/L (97-106) 02/13/19 12:55 Carbon Dioxide 27.7 mmol/L (24-32.6) 02/13/19 12:55 15.4 mmol/L (6.8-13.8) H 02/13/19 12:55 BUN 11 mg/dL (6-23) 02/13/19 12:55 0.92 mg/dL (0.4-1.4) 02/13/19 12:55 Est GFR (Non-Af Amer) 89 mL/min (60-130) 02/13/19 12:55 12.0 (9.0-21.6) 02/13/19 12:55 120 mg/dL (70-110) H 02/13/19 12:55 Calcium 9.0 mg/dL (7.9-10.9) 02/13/19 12:55 Calcium Adj for Albumin 8.8 mg/dL (8.4-10.2) 02/13/19 12:55 0.5 mg/dL (0.0-1.1) 02/13/19 12:55 AST 25 U/L (0-48) 02/13/19 12:55 ALT 21 U/L (19-67) 02/13/19 12:55 93 U/L (50-170) 02/13/19 12:55 0.019 ng/mL (0.00-0.10) 02/13/19 12:55 B-Natriuretic Peptide 93 pg/mL (5-175) 02/13/19 12:55 7.9 gm/dL (6.2-8.2) 02/13/19 12:55 3.9 gm/dl (3.4-5.0) 02/13/19 12:55 Assessment/Plan - Assessment/Plan (1) Acute exacerbation of chronic obstructive airways disease Assessment: With his wheezing, increased oxygen requirement, and productive cough, this supports COPD exacerbation. No findings on CXR. WBC and neutrophils slightly elevated, at 12.7 and 87.5%, respectively. He was given 125 mg IV solumedrol, and will continue with 60 mg daily prednisone. 100 mg doxycycline bid was started. Will also add advair to his regimen, and continue duoneb treatments. IF his heart rate elevates persistently greater than 120 with albuterol treatments, will switch to levalbuterol. Wean oxygen as tolerated. Initial troponin was not elevated at 0.019. EKG showed sinus tachycardia, and no change from previous. Will repeat troponin and EKG this evening. Problem: Acute (2) Nicotine dependence Assessment: Discussed smoking cessation. He has decreased from 2 ppd, to 1/2 ppd. Problem: Chronic Qualifiers: Nicotine product type: cigarettes
[2019-02-13] MEDS: ALBUTEROL SULFATE/IPRATROPIUM 3 ML NEBU IH SCH (18:06)
[2019-02-13] MEDS: FLUTICASONE PROPION/SALMETEROL 14 PUFF DISK.W.DEV IH SCH (20:52)
[2019-02-13] MEDS ORDERED: DOXYCYCLINE HYCLATE 100 MG TABLET PO SCH (21:00)
[2019-02-14] MEDS: ALBUTEROL SULFATE/IPRATROPIUM 3 ML NEBU IH SCH ×4 (00:06→18:11)
[2019-02-14] MEDS ORDERED: predniSONE 20 MG TABLET PO SCH (09:00)
[2019-02-14] MEDS: METHYLPREDNISOLONE SOD SUCC/PF 40 MG/ML VIAL IV SCH ×2 (09:29→20:49)
[2019-02-14] MEDS: DOXYCYCLINE HYCLATE 100 MG TABLET PO SCH ×2 (09:30→20:49)
[2019-02-14] MEDS: FLUTICASONE PROPION/SALMETEROL 14 PUFF DISK.W.DEV IH SCH ×2 (09:30→20:49)
--- NOTE | 2019-02-14 12:03 | PN ---
Subjective - Date and Time Seen Date: 02/14/19 Time: 10:30 Subjective Narrative: Patient is maybe feeling somewhat better than yesterday. His nurse reports continued wheeze. He is down to using 1 L via NC. He is eating, and walking to the bathroom. Objective - Review of Systems Generalized/Overall Review: Denies: Fever Respiratory: Reports: Cough, Shortness of Breath Cardiac: Denies: Chest Pain, Edema Abdominal: Denies: Nausea Genitourinary Symptoms: Reports: No Symptoms Reported Neurological: Reports: No Symptoms Reported - Vitals Vitals: Last Vital Signs Temp 36.3 C 02/14/19 09:57 Pulse 92 02/14/19 10:00 Resp 20 02/14/19 09:57 BP 116/69 02/14/19 09:57 Pulse Ox 94 02/14/19 09:57 - Abnormal Lab Findings Abnormal Lab Findings: Abnormal Lab Results 02/13/19 02/13/19 02/13/19 Range/Units 12:55 12:55 13:20 WBC 12.7 H (4.0-10.5) K/mm3 Hgb 18.2 H (13.5-18.0) gm/dL Hct 56.0 H (42.0-52.0) % Immature Gran # (Auto) 0.05 H (0.000-0.0310) K/mm3 Neutrophils % 87.5 H (42-75.0) % Lymphocytes % 6.3 L (20-51) % Neutrophils # 11.1 H (1.3-6.0) K/mm3 Lymphocytes # 0.80 L (1.5-3.5) k/mm3 pO2 73.9 L (83.0-108.0) mmHg Total CO2 26.5 H (19.0-24.0) mmol/L Anion Gap 15.4 H (6.8-13.8) mmol/L Random Glucose 120 H (70-110) mg/dL - Exam Constitutional: Present: Alert, Cooperative ENT Exam: Present: other - poor dentition Respiratory: Present: wheezing - significant bilateral wheeze, similar to yesterday evening Cardiovascular/Chest: Present: regular rate, rhythm Abdomen: Present: soft, tender - bilateral lower Extremity: Absent: lower extremity edema Skin Exam: Present: other - numerous violaceous healing macules Assessment/Plan - Problems/Diagnosis (1) Acute exacerbation of chronic obstructive airways disease Problem: Acute Narrative: He did not have significant elevation of troponins. EKG showed no change from previous, with [address] depression of V6, minimal ST depression of II, III, aVf. He has smoking history, and this is his third COPDe this year. He was started on doxycycline, and given 125 mg solumedrol in the ED. Will give 60 mg bid solumedrol today, and if his wheezing improves, can change to 60 mg prednisone tomorrow. His heart rate and respiratory rates improved from yesterday. His oxygen requirements are improving, but when walked today, his pulse ox decreased to 88% on room air. Will need to stay at least one additional night. (2) Nicotine dependence Problem: Chronic Qualifiers: Nicotine product type: cigarettes Narrative: Continue nicotine patch.
[2019-02-14] MEDS: NICOTINE 14 MG PATC TD SCH (14:49)
[2019-02-14] MEDS: guaiFENesin/DEXTROMETHORPHAN SYRUP PO PRN ×3 (14:54→23:21)
[2019-02-15] MEDS: ALBUTEROL SULFATE/IPRATROPIUM 3 ML NEBU IH SCH ×2 (00:16→06:07)
[2019-02-15] MEDS: guaiFENesin/DEXTROMETHORPHAN SYRUP PO PRN ×2 (03:45→10:04)
[2019-02-15] MEDS: FLUTICASONE PROPION/SALMETEROL 14 PUFF DISK.W.DEV IH SCH (08:33)
[2019-02-15] MEDS: DOXYCYCLINE HYCLATE 100 MG TABLET PO SCH (08:33)
[2019-02-15] MEDS: METHYLPREDNISOLONE SOD SUCC/PF 40 MG/ML VIAL IV SCH (08:46)
--- NOTE | 2019-02-15 09:25 | DS ---
Description of Stay: 58-year-old male was evaluated at bedside and was found to be resting comfortably, afebrile and in no acute distress. Patient was admitted for a COPD exacerbation, he has been hospitalized for the same diagnosis multiple times in the past but ends up being hospitalized again. I believe the problem that increases the recurrence of the hospitalization is the fact that the patient does not have an established PCP to manage his COPD on an outpatient basis. It was explained to the patient that it would be best that he establish with a PCP to avoid further hospitalization for his COPD. During this hospitalization the patient was treated with IV antibiotics, IV steroids, and breathing treatment with DuoNeb [id number]. This management has improved the patient's symptoms significantly, he is no longer short of breath on exertion and is now able to ambulate without any issues. Patient is also maintaining adequate saturation on room air and he denies any new symptoms. Therefore given these findings decision to discharge patient with breathing treatments and inhalers as well as additional days of oral antibiotics and oral steroids was made. Patient was instructed to follow-up with his newly established PCP within a week once he find one. Procedures Performed: none Results and Findings: Lab Pending Results 02/13/19 12:55: WBC 12.7 H, RBC 5.95, Hgb 18.2 H, Hct 56.0 H, MCV 94.1, MCH 30.6, MCHC 32.5, RDW 13.8, Plt Count 208, MPV 9.7, Immature Gran % (Auto) 0.40, Immature Gran # (Auto) 0.05 H, Neutrophils % 87.5 H, Lymphocytes % 6.3 L, Monocytes % 4.5, Eosinophils % 0.9, Basophils % 0.4, Nucleated RBC % 0.0, Neutrophils # 11.1 H, Lymphocytes # 0.80 L, Monocytes # 0.6, Eosinophils # 0.1, Absolute Basophils 0.1 02/13/19 12:55: Sodium 140, Plasma Sodium 140, Potassium 4.1, Chloride 101, Carbon Dioxide 27.7, Anion Gap 15.4 H, BUN 11, Creatinine 0.92, Est GFR (Non-Af Amer) 89, BUN/Creatinine Ratio 12.0, Random Glucose 120 H, Calcium 9.0, Calcium Adj for Albumin 8.8, Total Bilirubin 0.5, AST 25, ALT 21, Alkaline Phosphatase 93, Troponin I 0.019, B-Natriuretic Peptide 93, Total Protein 7.9, Albumin 3.9 02/13/19 13:20: pCO2 40.5, pO2 73.9 L, HCO3 25.3, Total CO2 26.5 H, Base Excess 0.7, ABG pH 7.41, ABG O2 Sat (Measured) 95.0 02/13/19 16:30: Troponin I 0.028 02/13/19 22:18: Troponin I 0.046 Discharge Location: Home Disposition: Home self-care Condition: Stable Face to Face Encounter completed per [facility] Guidelines: No Discharge Activity: Activity as tolerated Discharge Diet: Low salt Additional Patient Instructions (free text): -Please make TCM appointment unless [facility] discharge, or if following up with outside provider. Thank you! Annelise @ [employer] [phone] or Caroline at [facility] [phone]. Prescriptions (Any new or edited meds): Ipratropium [place] [Atrovent Hfa] 2 puff INHALATION QID #1 inhaler Albuterol Sulfate/Ipratropium [Duoneb 2.5-0.5MG/3ML Soln] 10 ml INHALATION Q4H PRN 5 Days #30 nebu PRN Reason: Shortness Of Breath predniSONE [Prednisone] 60 mg PO DAILY 5 Days #5 tab Doxycycline Hyclate [Vibratab] 100 mg PO DAILY 5 Days #5 tab Complete Home Medications List: Complete Home Medication List: Albuterol Sulfate [Proair Hfa] 1 - 2 puff INHALATION Q4H PRN #1 inhaler 11/14/18 Albuterol Sulfate/Ipratropium [Duoneb 2.5-0.5MG/3ML Soln] 3 ml INHALATION QID #150 vial 11/14/18 guaiFENesin/DEXTROMETHORPHAN [Robitussin-Dm] 10 ml PO Q4H PRN #7 btl 11/14/18 Albuterol Sulfate/Ipratropium [Duoneb 2.5-0.5MG/3ML Soln] 10 ml INHALATION Q4H PRN 5 Days #30 nebu 02/15/19 Doxycycline Hyclate [Vibratab] 100 mg PO DAILY 5 Days #5 tab 02/15/19 Ipratropium [place] [Atrovent Hfa] 2 puff INHALATION QID #1 inhaler 02/15/19 predniSONE [Prednisone] 60 mg PO DAILY 5 Days #5 tab 02/15/19
[2019-02-15 12:56] VITALS: BP 104/81
== END 2019-02-15 11:20 | disposition home or self-care (01) | DRG 192 ==
LOC: ER 12:36 → MS 12:36 → OBSVTOIN 13:50 → MS 14:00
PROVIDERS: ADMIT Family Medicine; ATTEND Family Medicine
DX: F17.210 Nicotine dependence, cigarettes, uncomplicated; J44.1 Chronic obstructive pulmonary disease with (acute) exacerbation
CPT/HCPCS: 36415; 36600; 71020; 71046; 80053; 82803; 83519; 83880; 84484; 85025; 93005; 94640; 94664; 94760; 96374; 96375; 99285; G0378